=== PATIENT | male | born 1970 | race Caucasian/White ===

== ENCOUNTER → 2018-09-26 12:04 | Outpatient (CLI) | payer OTHER, SELFPAY ==
--- NOTE | 2018-09-26 | DI.RAD.S_ITS ---
PROCEDURE: XR LUMBAR SPINE 2-3V INDICATIONS: LOW BACK PAIN; INTERVERTEBRAL DISC DISORDERS TECHNIQUE: 3 views of the lumbar spine were acquired. COMPARISON: [facility], MR, L-SPINE WITHOUT CONTRAST, 01/13/2014, 14:29. [facility], MR, L-SPINE WITHOUT CONTRAST, 07/11/2012, 10:51. FINDINGS: Bones: This patient has transitional lumbar anatomy. For the purposes of this examination, the level with the last relatively well developed disc space is considered to be S1-S2. By this numbering scheme, there are tiny vestigial ribs associated with the L1 level. Minimal lumbarization can be seen of S1. No displaced fractures are seen. No suspicious lytic or blastic lesions are seen. The disc heights are well-preserved. Soft tissues: Overlying bowel gas pattern is normal. No suspicious soft tissue calcifications. IMPRESSION: Unremarkable lumbar plain films, with transitional lumbar anatomy noted. Dictated by: Tristan Ba M.D. on 09/26/2018 at 11:54 Approved by: Tristan Ba M.D. on 09/26/2018 at 11:57
== END ==
PROVIDERS: PCP Physician Assistant; Visit Provider Physician Assistant
DX: M51.16 Intervertebral disc disorders with radiculopathy, lumbar region (principal); M54.5 Low back pain
CPT/HCPCS: 72100

== ENCOUNTER → 2019-11-13 12:24 | Outpatient (CLI) | payer OTHER, SELFPAY ==
--- NOTE | 2019-11-13 | DI.RAD.S_ITS ---
PROCEDURE: XR CHEST 2V INDICATIONS: WEIGHT LOSS TECHNIQUE: 2 views of the chest were acquired. COMPARISON: None. FINDINGS: Surgical changes and devices: None. Lungs and pleura: Lungs are clear. No pleural effusions or pneumothorax. Mediastinum: Mediastinal contours are normal. Heart size is normal. Bones and chest wall: No suspicious bony abnormalities. Soft tissues appear unremarkable. IMPRESSION: No acute disease Dictated by: Ashok Quinones M.D. on 11/13/2019 at 16:12 Approved by: Ashok Quinones M.D. on 11/13/2019 at 16:14
[2019-11-13 13:24] LABS: Add Manual Diff / Slide Review NO; Basophils Absolute Auto 0 /uL (0-100); Basophils Percent Auto 0.3 % (0-2); Eosinophils Absolute Auto 100 /uL (0-450); Eosinophils Percent Auto 1.2 % (2-4); Hematocrit 47.2 % (41-53); Hemoglobin 16.3 g/dL (13.5-17.5); Lymphocytes Absolute Auto 2300 /uL (1100-4500); Lymphocytes Percent Auto 37.3 % (25-40); Mean Corpuscular HGB Conc 34.6 % (30-36); Mean Corpuscular Volume 92.5 fL (80-100); Monocytes Absolute Auto 500 /uL (0-900); Monocytes Percent Auto 8.5 % (3-14); Neutrophils Absolute Auto 3300 /uL (1500-7000); Neutrophils Percent Auto 52.7 % (50-75); Platelet Count 229 X10^3/uL (150-400); Red Blood Cell Count 5.11 X10^6/uL (4.5-5.9); Red Cell Distribution Width 12.9 % (11.6-14.8); White Blood Cell Count 6.2 X10^3/uL (4.5-11.0)
[2019-11-13 13:39] LABS: Alanine Aminotransferase 24 IU/L (<50); Albumin 4.5 g/dL (3.5-5.0); Albumin Globulin Ratio 1.8 (1.0-2.8); Alkaline Phosphatase 60 U/L (38-126); Aspartate Aminotransferase 22 IU/L (17-59); BUN Creatinine Ratio 17.1 (6-22); Bilirubin Total 0.7 mg/dL (0.2-1.3); Blood Urea Nitrogen 12 mg/dL (9-20); Calcium 9.6 mg/dL (8.4-10.2); Carbon Dioxide 26 mmol/L (22-32); Chloride 98 mmol/L (98-107); Estimated Glomerular Filt Rate > 60.0 mL/min (>60); Globulin 2.5 g/dL (1.7-4.1); HEMOLYSIS < 15 (0-50); Potassium 4.6 mmol/L (3.4-5.1); Sodium 133 mmol/L (137-145)
[2019-11-13 13:40] LABS: C-Reactive Protein Quant < 0.5 mg/dL (<1.0); Hemoglobin A1C% w Est Avg Glu 11.9 % (4.0-6.0)
[2019-11-13 13:52] LABS: Erythrocyte Sedimentation Rate 1 MM/HR (0-15); Glucose 585 mg/dL (70-100)
== END ==
PROVIDERS: PCP Physician Assistant; Referring Provider Physician Assistant; Visit Provider Physician Assistant
DX: R63.4 Abnormal weight loss (principal); E78.2 Mixed hyperlipidemia; R73.09 Other abnormal glucose; R53.1 Weakness
CPT/HCPCS: 36415; 71046; 80053; 83036; 85025; 85651; 86140

== ENCOUNTER 2019-11-13 22:10 | Emergency (ER) | payer OTHER, SELFPAY ==
[2019-11-13 22:11] VITALS: BP 140/91; PULSE 96; RESP 20; TEMP 36.8; O2SAT 99
--- NOTE | 2019-11-13 22:41 | ED.GENADULT ---
HPI - General Adult General Chief complaint: Diabetic Problem Stated complaint: GLUCOSE OVER 600 Time Seen by Provider: 11/13/19 22:33 Source: patient Mode of arrival: Ambulatory Limitations: no limitations History of Present Illness HPI narrative: 49-year-old male nonsmoker with noncontributory medical history presents with his significant other in the chief complaint of an abnormal lab noted on outpatient blood work. He has had episodes of nausea vomiting and unexplained week loss with increased hunger, thirst and urination for the past few weeks. He has had no fever chills. Denies chest pain or shortness of breath. He denies any abdominal pain. He had been seen in the emergency department few weeks ago and had a workup for appendicitis due to the vomiting but they thought it was more likely a viral illness. His blood glucose was in the 600s and he was sent here for evaluation Onset (ago): week(s) Severity: moderate Exacerbating factors: none Related Data Previous Rx's Medication Instructions Recorded metformin 500 mg PO BID #30 tab 11/14/19 Review of Systems Constitutional Constitutional: Denies chills, Denies fatigue, Denies fever(s), Denies frequent falls, Denies lethargy and Reports weakness Eyes Eyes: Denies change in vision, Denies eye discharge, Denies irritation and Denies loss of vision ENT Ears, Nose, Mouth, and Throat: Denies change in voice, Denies dizziness, Denies neck pain, Denies sore throat and Denies throat swelling Cardiovascular Cardiovascular: Denies chest pain, Denies irregular heart rhythm, Denies lightheadedness, Denies palpitations, Denies dyspnea, Denies dyspnea on exertion and Denies orthopnea Respiratory Respiratory: Denies cough, Denies dyspnea, Denies dyspnea on exertion and Denies wheezing Gastrointestinal Gastrointestinal: Denies abdominal pain, Denies change in bowel habits, Denies diarrhea, Denies nausea and Denies vomiting Genitourinary Genitourinary: Denies hematuria, Denies flank pain, Denies urinary incontinence and Denies urinary urgency Musculoskeletal Musculoskeletal: Denies back pain, Denies muscle weakness, Denies neck pain, Denies numbness and Denies tingling Integumentary/Breasts Skin/Breast: Denies pruritus, Denies erythema, Denies rash and Denies wounds Neurologic Neurologic: Denies behavioral changes, Denies confusion, Denies dizziness, Denies frequent falls, Denies loss of vision, Denies numbness, Denies tingling and Reports weakness Psychiatric Psychiatric: Denies anxiety, Denies behavioral changes, Denies confusion, Denies depression, Denies homicidal ideation and Denies suicidal ideation Endocrine Endocrine: Denies fatigue, Denies flushing and Denies palpitations Hematologic/Lymphatic Hematologic/Lymphatic: Denies easy bruising Allergic/Immunologic Allergic/Immunologic: Denies urticaria, Denies throat swelling and Denies wheezing Patient History Social History Smoking Status: Former smoker Smoking Status: Former smoker alcohol intake frequency: holidays/special occasions only Exam Narrative Exam Narrative: GENERAL: [49] year old patient appears stated age. Well-nourished, well-developed patient, in mild distress. HEAD: Atraumatic. Normocephalic. EYES: Pupils equal round and reactive. Extraocular motions intact. No scleral icterus. No injection or drainage. ENT: Nose without bleeding, purulent drainage. Throat without erythema, tonsillar hypertrophy or exudate. Airway patent. NECK: Trachea midline. Non tender CARDIOVASCULAR: Regular rate and rhythm without murmurs, gallops, or rubs. RESPIRATORY: Clear to auscultation. Breath sounds equal bilaterally. No wheezes, rales, or rhonchi. GASTROINTESTINAL: Abdomen soft, non-tender, nondistended. EXTREMITIES: No edema or joint tenderness. BACK: Nontender without deformity or crepitance. No flank tenderness. NEURO: AOx3. SKIN: No rash or erythema of visible areas Initial Vital Signs Initial Vital Signs: Vital Signs Temperature 98.2 F 11/13/19 22:11 Pulse Rate 96 H 11/13/19 22:11 Respiratory Rate 20 11/13/19 22:11 Blood Pressure 140/91 H 11/13/19 22:11 Pulse Oximetry 99 11/13/19 22:11 Course Orders Ordered: Discontinued Medications Lactated Ringer's (Lactated Ringers) 1,000 mls @ 1,000 mls/hr IV BOLUS ONE Stop: 11/13/19 23:40 Last Infusion: 11/14/19 00:49 Dose: 0 mls/hr Documented by: Admin: 11/13/19 22:55 Dose: 1,000 mls/hr Documented by: SUZAN Lactated Ringer's (Lactated Ringers) 1,000 mls @ 1,000 mls/hr IV BOLUS ONE Stop: 11/14/19 01:02 Last Admin: 11/14/19 00:48 Dose: 1,000 mls/hr Documented by: JAG Vital Signs Vital signs: Vital Signs - 8 hr 11/13/19 22:11 Temperature 98.2 F Pulse Rate 96 H Respiratory Rate 20 Blood Pressure 140/91 H Pulse Oximetry 99 Medical Decision Making Lab Data Result diagrams: 11/13/19 22:36 11/13/19 22:36 Labs: Lab Results 11/13/19 11/13/19 11/13/19 Range/Units 22:36 22:36 22:36 WBC 7.4 (4.5-11.0) X10^3/uL RBC 5.10 (4.5-5.9) X10^6/uL Hgb 16.3 (13.5-17.5) g/dL Hct 46.9 (41-53) % MCV 92.1 (80-100) fL MCH 31.9 (26-34) PG MCHC 34.7 (30-36) % RDW 13.0 (11.6-14.8) % Plt Count 230 (150-400) X10^3/uL Neut % (Auto) 53.1 (50-75) % Lymph % (Auto) 36.9 (25-40) % [place] % (Auto) 8.0 (3-14) % Eos % (Auto) 1.5 L (2-4) % Baso % (Auto) 0.5 (0-2) % Neut # (Auto) 3900 (2746-3557) /uL Lymph # (Auto) 2700 (8097-4027) /uL [place] # (Auto) 600 (0-900) /uL Eos # (Auto) 100 (0-450) /uL Baso # (Auto) 0 (0-100) /uL VBG pH (7.33-7.43) VBG pCO2 (45-50) mmHg VBG pO2 (35-45) mmHg VBG HCO3 (23-28) mmol/L VBG Total CO2 (24-29) mmol/L VBG O2 Saturation (70-75) % VBG Base Excess (0-4) mmol/L Sodium (137-145) mmol/L Potassium (3.4-5.1) mmol/L Chloride (98-107) mmol/L Carbon Dioxide (22-32) mmol/L BUN (9-20) mg/dL Creatinine (0.66-1.25) mg/dL Estimated GFR (>60) mL/min BUN/Creatinine Ratio (6-22) Glucose (70-100) mg/dL Hemoglobin A1c 12.1 H (4.0-6.0) % Lactate (0.7-2.1) mmol/L Calcium (8.4-10.2) mg/dL Total Bilirubin (0.2-1.3) mg/dL AST (17-59) IU/L ALT (<50) IU/L Alkaline Phosphatase (38-126) U/L Total Protein (6.3-8.2) g/dL Albumin (3.5-5.0) g/dL Globulin (1.7-4.1) g/dL Albumin/Globulin Ratio (1.0-2.8) Procalcitonin < 0.05 (<0.5) ng/mL Ketones (<0.27) mmol/L 11/13/19 11/13/19 11/13/19 Range/Units 22:36 22:36 22:50 WBC (4.5-11.0) X10^3/uL RBC (4.5-5.9) X10^6/uL Hgb (13.5-17.5) g/dL Hct (41-53) % MCV (80-100) fL MCH (26-34) PG MCHC (30-36) % RDW (11.6-14.8) % Plt Count (150-400) X10^3/uL Neut % (Auto) (50-75) % Lymph % (Auto) (25-40) % [place] % (Auto) (3-14) % Eos % (Auto) (2-4) % Baso % (Auto) (0-2) % Neut # (Auto) (7024-9407) /uL Lymph # (Auto) (0656-7765) /uL [place] # (Auto) (0-900) /uL Eos # (Auto) (0-450) /uL Baso # (Auto) (0-100) /uL VBG pH 7.38 (7.33-7.43) VBG pCO2 36.9 L (45-50) mmHg VBG pO2 43 (35-45) mmHg VBG HCO3 22 L (23-28) mmol/L VBG Total CO2 23 L (24-29) mmol/L VBG O2 Saturation 78 H (70-75) % VBG Base Excess -3.0 L (0-4) mmol/L Sodium 134 L (137-145) mmol/L Potassium 4.2 (3.4-5.1) mmol/L Chloride 100 (98-107) mmol/L Carbon Dioxide 26 (22-32) mmol/L BUN 15 (9-20) mg/dL Creatinine 0.70 (0.66-1.25) mg/dL Estimated GFR > 60.0 (>60) mL/min BUN/Creatinine Ratio 21.4 (6-22) Glucose 471 H D (70-100) mg/dL Hemoglobin A1c (4.0-6.0) % Lactate 2.1 (0.7-2.1) mmol/L Calcium 9.5 (8.4-10.2) mg/dL Total Bilirubin 0.6 (0.2-1.3) mg/dL AST 29 (17-59) IU/L ALT 27 (<50) IU/L Alkaline Phosphatase 63 (38-126) U/L Total Protein 7.0 (6.3-8.2) g/dL Albumin 4.3 (3.5-5.0) g/dL Globulin 2.7 (1.7-4.1) g/dL Albumin/Globulin Ratio 1.6 (1.0-2.8) Procalcitonin (<0.5) ng/mL Ketones 0.18 (<0.27) mmol/L Point of Care Testing Glucose POC 283 Point of care testing: Point of Care Testing Glucose POC 283 Discharge Plan Departure Patient Disposition: Home Clinical Impression: Diabetes mellitus Qualifiers: Diabetes mellitus type: type 2 Diabetes mellitus usp insulin use: without intermediate project manager use Diabetes mellitus complication status: without complication Qualified Code(s): E11.9 - Type 2 diabetes mellitus without complications Discharge Date/Time: 11/14/19 02:41 Instructions: DI for Diabetes Type 2 Activity Restrictions/Additional Instructions: *You have been diagnosed with [hyperglycemia, very likely to be type 2 diabetes] *What to do: *Take medications as directed *Follow up with your primary care provider in 2-3 days, call for an appointment. Let them know you were seen in the Emergency Department and that we ask that you be seen in follow up *Return to ER if you should have any new, worsening or concerning symptoms Prescriptions: New metformin 500 mg tablet 500 mg PO BID Qty: 30 RF: 0 Referrals: Lu Kohler PA-C [Primary Care Provider] -
[2019-11-13] MEDS: LACTATED RINGERS 1,000 ML 1000 ML IV (22:55)
[2019-11-13 23:00] LABS: Add Manual Diff / Slide Review NO; Basophils Absolute Auto 0 /uL (0-100); Basophils Percent Auto 0.5 % (0-2); Eosinophils Absolute Auto 100 /uL (0-450); Eosinophils Percent Auto 1.5 % (2-4); Hematocrit 46.9 % (41-53); Hemoglobin 16.3 g/dL (13.5-17.5); Lymphocytes Absolute Auto 2700 /uL (1100-4500); Lymphocytes Percent Auto 36.9 % (25-40); Mean Corpuscular HGB Conc 34.7 % (30-36); Mean Corpuscular Hemoglobin 31.9 PG (26-34); Mean Corpuscular Volume 92.1 fL (80-100); Monocytes Absolute Auto 600 /uL (0-900); Neutrophils Absolute Auto 3900 /uL (1500-7000); Neutrophils Percent Auto 53.1 % (50-75); Platelet Count 230 X10^3/uL (150-400); White Blood Cell Count 7.4 X10^3/uL (4.5-11.0)
[2019-11-13 23:02] LABS: Lactate (Lactic Acid) 2.1 mmol/L (0.7-2.1)
[2019-11-13 23:02] LABS: HCO3 VBG 22 mmol/L (23-28); Oxygen Saturation VBG 78 % (70-75); PCO2 VBG 36.9 mmHg (45-50); PO2 VBG 43 mmHg (35-45); Total CO2 VBG 23 mmol/L (24-29); pH VBG 7.38 (7.33-7.43)
[2019-11-13 23:05] LABS: Alanine Aminotransferase 27 IU/L (<50); Albumin 4.3 g/dL (3.5-5.0); Albumin Globulin Ratio 1.6 (1.0-2.8); Alkaline Phosphatase 63 U/L (38-126); Aspartate Aminotransferase 29 IU/L (17-59); BUN Creatinine Ratio 21.4 (6-22); Bilirubin Total 0.6 mg/dL (0.2-1.3); Blood Urea Nitrogen 15 mg/dL (9-20); Calcium 9.5 mg/dL (8.4-10.2); Carbon Dioxide 26 mmol/L (22-32); Chloride 100 mmol/L (98-107); Estimated Glomerular Filt Rate > 60.0 mL/min (>60); Globulin 2.7 g/dL (1.7-4.1); Glucose 471 mg/dL (70-100); HEMOLYSIS 20 (0-50); Potassium 4.2 mmol/L (3.4-5.1); Sodium 134 mmol/L (137-145)
[2019-11-13 23:07] LABS: Ketones (Beta-Hydroxybutyrate) 0.18 mmol/L (<0.27)
[2019-11-13 23:20] LABS: Procalcitonin < 0.05 ng/mL (<0.5)
[2019-11-13 23:44] LABS: Hemoglobin A1C% w Est Avg Glu 12.1 % (4.0-6.0)
[2019-11-14] MEDS: LACTATED RINGERS 1,000 ML 1000 ML IV (00:48)
[2019-11-14 02:36] VITALS: BP 138/88; PULSE 82; RESP 16; O2SAT 99
--- NOTE | 2019-11-29 02:40 | PC.NURSE ---
LR stopped at 0148. 1 liter infused.
== END 2019-11-14 02:41 | disposition home or self-care (01) ==
PROVIDERS: Emergency Provider Emergency Medicine; PCP Physician Assistant
DX: E11.65 Type 2 diabetes mellitus with hyperglycemia (principal); K63.4 Enteroptosis; E78.2 Mixed hyperlipidemia; R53.1 Weakness
CPT/HCPCS: 36415; 71046; 80053; 82009; 82805; 82962; 83036; 83605; 84145; 85025; 85651; 86140; 87040; 99284

== ENCOUNTER → 2019-11-18 07:55 | Outpatient (CLI) | payer OTHER, SELFPAY ==
--- NOTE | 2019-11-18 | DI.MRI.S_ITS ---
PROCEDURE: MR LUMBAR SPINE WO CON INDICATIONS: INTERVERTABRAL DISC DISORDER TECHNIQUE: Noncontrast sagittal T1 spin echo and T2 fast echo, sagittal STIR, axial T1 and T2 fast spin echo through the lumbar spine. In cases with scoliosis, additional coronal T2 fast spin echo may be performed. COMPARISON: [facility], MR, L-SPINE WITHOUT CONTRAST, 01/13/2014, 14:29. FINDINGS: Image quality: Excellent. Alignment and Curvature: There is normal bony alignment. Bone Marrow: Marrow is of normal overall signal. No acute vertebral body compression fractures. Spinal Cord: Conus medullaris terminates at the L1-L2 level. Visualized cord demonstrates normal signal and size. Paraspinous Soft Tissues: No paravertebral masses. T12-L1: Normal in appearance. L1-L2: Normal appearance. L2-L3: Normal in appearance. L3-L4: No significant change. Posterior annulus tear. Mild disc bulge. Mild facet and ligament hypertrophy. Borderline canal stenosis. No significant foraminal stenosis. L4-L5: Chronic posterior annulus tear. Slight interval decrease in posterior disc bulge. Facet and ligament hypertrophy. Mild canal stenosis. No foraminal stenosis. L5-S1: Chronic posterior annulus tear. Mild left paracentral disc protrusion, also previously present. A small associated disc extrusion previously present has decreased in size. There is mild impingement on the left S1 nerve root in the left lateral recess. Mild canal stenosis. Mild bilateral foraminal stenosis. IMPRESSION: 1. As before, there are annulus tears at L3-L4, L4-L5, and L5-S1. 2. Canal stenosis is borderline at L3-L4, and mild at L4-L5 and L5-S1. 3. At L5-S1, there is a chronic mild left paracentral disc protrusion. A small associated disc extrusion has decreased in size. There is mild impingement on the left S1 nerve root in the left lateral recess. Dictated by: Luís Akhtar M.D. on 11/18/2019 at 9:08 Approved by: Luís Akhtar M.D. on 11/18/2019 at 9:22
== END ==
PROVIDERS: PCP Physician Assistant; Referring Provider Physician Assistant; Visit Provider Physician Assistant
DX: M51.17 Intervertebral disc disorders with radiculopathy, lumbosacral region (principal); M51.16 Intervertebral disc disorders with radiculopathy, lumbar region; M48.061 Spinal stenosis, lumbar region without neurogenic claudication; M48.07 Spinal stenosis, lumbosacral region
CPT/HCPCS: 72148

== ENCOUNTER 2020-03-27 12:05 | Emergency (ER) | payer OTHER, SELFPAY ==
[2020-03-27] VITALS (12 sets, daily range): BP systolic 124–158; BP diastolic 87–101; PULSE 53–86; RESP 14–22; TEMP 36.8–36.9; O2SAT 90–100; BMI 19.0
[2020-03-27 13:19] LABS: Add Manual Diff / Slide Review NO; Basophils Absolute Auto 0 /uL (0-100); Basophils Percent Auto 0.4 % (0-2); Eosinophils Absolute Auto 0 /uL (0-450); Eosinophils Percent Auto 0.5 % (2-4); Hematocrit 44.4 % (41-53); Hemoglobin 15.6 g/dL (13.5-17.5); Lymphocytes Absolute Auto 1900 /uL (1100-4500); Lymphocytes Percent Auto 32.8 % (25-40); Mean Corpuscular HGB Conc 35.2 % (30-36); Mean Corpuscular Hemoglobin 31.9 PG (26-34); Mean Corpuscular Volume 90.6 fL (80-100); Monocytes Absolute Auto 500 /uL (0-900); Monocytes Percent Auto 8.3 % (3-14); Neutrophils Absolute Auto 3400 /uL (1500-7000); Platelet Count 248 X10^3/uL (150-400); Red Cell Distribution Width 13.2 % (11.6-14.8); White Blood Cell Count 5.9 X10^3/uL (4.5-11.0)
[2020-03-27 13:26] LABS: INR 0.9 (0.9-1.3); Prothrombin Time 10.8 SECONDS (10.1-12.7)
[2020-03-27 13:29] LABS: PTT Partial Thromboplastin Tim 27 SECONDS (26.4-36.2)
[2020-03-27 13:31] LABS: Alanine Aminotransferase 24 IU/L (<50); Albumin 4.2 g/dL (3.5-5.0); Albumin Globulin Ratio 1.9 (1.0-2.8); Alkaline Phosphatase 34 U/L (38-126); Aspartate Aminotransferase 22 IU/L (17-59); BUN Creatinine Ratio 22.8 (6-22); Bilirubin Total 0.8 mg/dL (0.2-1.3); Blood Urea Nitrogen 18 mg/dL (9-20); Calcium 9.6 mg/dL (8.4-10.2); Carbon Dioxide 26 mmol/L (22-32); Chloride 101 mmol/L (98-107); Estimated Glomerular Filt Rate > 60.0 mL/min (>60); Globulin 2.2 g/dL (1.7-4.1); Glucose 253 mg/dL (70-100); HEMOLYSIS < 15 (0-50); Lipase 56 U/L (23-300); Potassium 4.3 mmol/L (3.4-5.1); Sodium 134 mmol/L (137-145); Total Protein 6.4 g/dL (6.3-8.2)
--- NOTE | 2020-03-27 13:36 | DI.RAD.S_ITS ---
PROCEDURE: XR CHEST 2V INDICATIONS: hx of smoker, significant weight loss, upper abd pain TECHNIQUE: 2 views of the chest were acquired. COMPARISON: [facility], CR, XR CHEST 2V, 11/13/2019, 12:33. FINDINGS: Surgical changes and devices: None. Lungs and pleura: Lungs are clear. No pleural effusions or pneumothorax. Mediastinum: Mediastinal contours are normal. Heart size is normal. Bones and chest wall: No suspicious bony abnormalities. Soft tissues appear unremarkable. IMPRESSION: No acute cardiopulmonary process is seen. If there is strong clinical concern for an intrathoracic neoplasm in this patient with a given history of smoking, please consider a dedicated chest CT with contrast for further evaluation. Dictated by: Tristan Ba M.D. on 03/27/2020 at 14:15 Approved by: Tristan Ba M.D. on 03/27/2020 at 14:16
[2020-03-27 13:38] LABS: Bacteria Urine None Seen; RBC Urine None Seen (0-5/HPF); WBC Urine None Seen (0-5/HPF)
[2020-03-27 13:48] LABS: Amorphous Sediment Urine 3+; Calcium Oxalate Crystals Urine Few; Culture Indicated Urine Cult Not Indicated
[2020-03-27] MEDS: ONDANSETRON 4 MG/2 ML INJ IV (14:03)
[2020-03-27] MEDS: PANTOPRAZOLE 40 MG VIAL IV (14:03)
[2020-03-27] MEDS: SODIUM CHLORIDE 0.9% 1,000 ML 1000 ML IV (14:03)
[2020-03-27] MEDS: SUCRALFATE 1 GM/10 ML ORAL SUSP PO (14:03)
--- NOTE | 2020-03-27 14:13 | DI.US.S_ITS ---
PROCEDURE: US ABDOMEN LIMITED INDICATIONS: EPIGASTRIC PAIN, WEIGHT LOSS, N/V TECHNIQUE: Real-time focused scanning was performed of the abdomen, with image documentation. COMPARISON: [facility], CR, XR CHEST 2V, 03/27/2020, 13:37. FINDINGS: No findings of gallstones or sludge are seen. The gallbladder wall is not thickened, measuring 3 mm or less. No specific pericholecystic fluid is seen. The sonographic Kline sign is negative. There is no biliary dilatation, the common bile duct measures 6 mm. The liver is normal in size and demonstrates no focal lesions. No significant pancreatic abnormality is seen on these images. IMPRESSION: The gallbladder demonstrates a normal sonographic appearance. No biliary dilatation is seen. Dictated by: Tristan Ba M.D. on 03/27/2020 at 14:17 Approved by: Tristan Ba M.D. on 03/27/2020 at 14:18
--- NOTE | 2020-03-27 14:40 | ED.ABDPAIN ---
HPI - Abdominal Pain <YAZMIN Parra - Last Filed: 03/28/20 00:51> General Chief Complaint: Dizziness Stated Complaint: Nausea, vomiting, dizziness for 7 days Time Seen by Provider: 03/27/20 12:47 Source: patient and family Mode of arrival: Family Vehicle Limitations: no limitations History of Present Illness HPI narrative: This is a 50-year-old male, former smoker, who has significant medical history with type 2 diabetes is not currently on medication presents to ED with significant other with chief complain of significant weight loss over 40 lb, ongoing nausea and vomiting, and epigastric/mid upper abdominal pain for last 5 months. Old ED EHR shows weight during last visit in November indicated 73.9 kg and today's weight is 63.5 kg with BMI of 19% and lost approximately 10kg/22 Lbs. He vomits about 1-2 times in 24 period but very random and is not always triggered by eating. He describes his epigastric pain as burning. Patient states he had lost about 45 lb since October and reports worsening for last 2 weeks and lost 10 lb. Patient was diagnosed with diabetes in November with routine blood test that was done by primary care physician and noted at that time blood sugar over 600 mg/dL and was referred to emergency room. Patient was on metformin for 5 days and stopped 2 weeks ago since she was not able to tolerated it. Currently his blood sugar at home is running between 180s to 210 mg/dL. Patient eliminated carbohydrates in his current diet is consisted of healthy soup made with chicken and vegetables and blended when he can tolerate it it. Patient denies diarrhea, fever, blood in his emesis. Patient reports he was referred to GI specialist at [place] and had EGD done with the biopsy and also GI motility tests done and was told results are normal. Patient has been seeing Naturopathic specialist Dr. Wilde and and is currently taking Berbarine for diabetes. Patient states he had imaging tests done in his abdomen but this is not available today for review. Patient has 1st appointment with able bodied watchman in [place] in 3 days. The most recent hemoglobin A1c is down to 8.4 a month ago from 12.1 on 11/13/19. Related Data Previous Rx's Medication Instructions Recorded metformin 500 mg PO BID #30 tab 11/14/19 metoclopramide HCl [Reglan] 10 mg PO QACHS PRN #14 tab 03/27/20 ondansetron 4 mg PO Q8H PRN #10 tab 03/27/20 sucralfate 1 gram PO QAC PRN #30 tab 03/27/20 Allergies Allergy/AdvReac Type Severity Reaction Status Date / Time bupropion [From Wellbutrin] Allergy Verified 03/27/20 12:34 egg Allergy Verified 03/27/20 12:34 lactase [From Dairy Aid] Allergy Verified 03/27/20 12:34 Review of Systems <[facility] - Last Filed: 03/28/20 00:51> Review of Systems Narrative: General: Denies fever, chills, fatigue, malaise, sweats, (+) unintentional weight loss of 45 lb in 5 months. HEENT: Denies sinus pain, ear pain, sore throat, difficulty swallowing, dizziness. Respiratory: Denies dyspnea, cough, wheezing, hemoptysis, sputum. Cardiovascular: Denies chest pain, palpitations, orthopnea, edema. Gastrointestinal: See HPI : Denies dysuria, frequency, incontinence, hematuria, urinary retention. Musculoskeletal: Denies weakness, joint pain or bony pain. Skin: Denies rash, skin lesions, or other. Neurologic: Denies weakness, headache, numbness, change in speech, confusion, seizures, incoordination. Psychiatric: No concerning psychosocial issues. 12-point review of systems is negative except for those stated above. Patient History <[facility] Last Filed: 03/28/20 00:51> Social History Smoking Status: Former smoker Smoking Status: Former smoker alcohol intake frequency: holidays/special occasions only Substance Use Type: does not use Exam [facility] Filed: 03/28/20 00:51> Narrative Exam Narrative: GEN: Alert, oriented x 3, well appearing and nourished, and in no acute distress. Head: Normal cephalic, atraumatic. No scalp or temporal tenderness, palpable mass or rash. EYES: Pupils are equal, round, and reactive to light and accommodation. Extraocular muscles are intact bilaterally. There is no subconjunctival hemorrhage, exudate and sclera non-icteric. ENT: Hearing grossly intact. Nose without bleeding, purulent discharge or deviation. Mucous membrane moist, no mucosal lesion. Throat without erythema, tonsillar hypertrophy or exudate. Uvula in midline, airway patent. Neck: Trachea in midline. No JVD, non-tender without lymphadenopathy. No masses or thyroid megaly. Supple, non-tender and no meningeal signs. CARDIAC: Normal regular rate and rhythm without murmurs, gallops, or rubs. No chest wall tenderness. No peripheral edema, cyanosis or pallor. Capillary refill is less than 2 seconds. RESPIRATORY: Lungs are clear to auscultate bilaterally. No cough, wheezes, rales, or rhonchi. No stridor, respiratory distress, increase work of breathing, or accessary muscle used. ABD: Abdomen soft, generalized tenderness to palpate in upper quadrants and non-distended. No guarding or rebound tenderness to palpate. Bowel sounds are normal in all 4 quadrants. There is no palpable masses or organomegaly. EXT: Full painless ROM of all extremities with no loss of sensation, strength, effusion or edema. SKIN: Warm, dry, normal color for patient. No erythema, lesions or rash over visible areas. BACK: Nontender without deformity or crepitance. No flank tenderness. NEUROLOGICAL: Alert and oriented to place, time and person. Sensation and motor function intact bilaterally. No facial droops, dysphasia. PSYCHIATRIC: Good judgement and reason, without hallucinations, abnormal affect or abnormal behaviors during the examination. Patient is not suicidal. Initial Vital Signs Initial Vital Signs: Vital Signs Temperature 98.4 F 03/27/20 12:27 Pulse Rate 53 L 03/27/20 12:27 Respiratory Rate 18 03/27/20 12:27 Blood Pressure 130/101 H 03/27/20 12:27 Pulse Oximetry 99 03/27/20 12:27 <Vasu Crow MD - Last Filed: 03/28/20 07:51> Initial Vital Signs Initial Vital Signs: Vital Signs Temperature 98.4 F 03/27/20 12:27 Pulse Rate 53 L 03/27/20 12:27 Respiratory Rate 18 03/27/20 12:27 Blood Pressure 130/101 H 03/27/20 12:27 Pulse Oximetry 99 03/27/20 12:27 Scores <YAZMIN Parra - Last Filed: 03/28/20 00:51> GCS Beth coma scale eye opening: Spontaneous [place] coma scale verbal response: Orientated Beth coma scale motor response: Obey commands [place] coma scale total score: 15 Course <Mark Anderson-YAZMIN Nesbitt - Last Filed: 03/28/20 00:51> Orders Ordered: Discontinued Medications Diphenhydramine HCl (Benadryl) 25 mg IV NOW ONE Stop: 03/27/20 16:27 Last Admin: 03/27/20 16:40 Dose: 25 mg Documented by: VALERIA Sodium Chloride (Normal Saline 0.9%) 1,000 mls @ 1,000 mls/hr IV BOLUS ONE Stop: 03/27/20 14:51 Last Infusion: 03/27/20 16:28 Dose: 0 mls/hr Documented by: Admin: 03/27/20 14:03 Dose: 1,000 mls/hr Documented by: VALERIA Sodium Chloride (Normal Saline 0.9%) 1,000 mls @ 125 mls/hr IV CONT MARINA Last Admin: 03/27/20 16:39 Dose: 125 mls/hr Documented by: VALERIA Ketorolac Tromethamine (Toradol) 15 mg IV NOW ONE Stop: 03/27/20 16:23 Last Admin: 03/27/20 16:40 Dose: 15 mg Documented by: VALERIA Metoclopramide HCl (Reglan) 10 mg IV NOW ONE Stop: 03/27/20 16:24 Last Admin: 03/27/20 16:40 Dose: 10 mg Documented by: VALERIA Ondansetron HCl (Zofran) 4 mg IV NOW ONE Stop: 03/27/20 13:36 Last Admin: 03/27/20 14:03 Dose: 4 mg Documented by: VALERIA Pantoprazole Sodium (Protonix) 40 mg IV NOW ONE Stop: 03/27/20 13:36 Last Admin: 03/27/20 14:03 Dose: 40 mg Documented by: VALERIA Sucralfate (Carafate) 1 gm PO NOW ONE Stop: 03/27/20 14:01 Last Admin: 03/27/20 14:03 Dose: 1 gm Documented by: VALERIA Vital Signs Vital signs: Vital Signs - 8 hr 03/27/20 15:38 03/27/20 16:00 03/27/20 16:38 Temperature Pulse Rate 79 77 Respiratory Rate 16 Blood Pressure 124/87 Pulse Oximetry 99 90 L 03/27/20 16:39 03/27/20 17:00 03/27/20 17:57 Temperature 98.2 F Pulse Rate 76 79 86 Respiratory Rate 22 14 22 Blood Pressure 157/100 H 158/100 H 148/98 H Pulse Oximetry 97 100 98 <Vasu Crow MD - Last Filed: 03/28/20 07:51> Orders Ordered: Discontinued Medications Diphenhydramine HCl (Benadryl) 25 mg IV NOW ONE Stop: 03/27/20 16:27 Last Admin: 03/27/20 16:40 Dose: 25 mg Documented by: VALERIA Sodium Chloride (Normal Saline 0.9%) 1,000 mls @ 1,000 mls/hr IV BOLUS ONE Stop: 03/27/20 14:51 Last Infusion: 03/27/20 16:28 Dose: 0 mls/hr Documented by: Admin: 03/27/20 14:03 Dose: 1,000 mls/hr Documented by: VALERIA Sodium Chloride (Normal Saline 0.9%) 1,000 mls @ 125 mls/hr IV CONT MARINA Last Admin: 03/27/20 16:39 Dose: 125 mls/hr Documented by: VALERIA Ketorolac Tromethamine (Toradol) 15 mg IV NOW ONE Stop: 03/27/20 16:23 Last Admin: 03/27/20 16:40 Dose: 15 mg Documented by: VALERIA Metoclopramide HCl (Reglan) 10 mg IV NOW ONE Stop: 03/27/20 16:24 Last Admin: 03/27/20 16:40 Dose: 10 mg Documented by: VALERIA Ondansetron HCl (Zofran) 4 mg IV NOW ONE Stop: 03/27/20 13:36 Last Admin: 03/27/20 14:03 Dose: 4 mg Documented by: VALERIA Pantoprazole Sodium (Protonix) 40 mg IV NOW ONE Stop: 03/27/20 13:36 Last Admin: 03/27/20 14:03 Dose: 40 mg Documented by: VALERIA Sucralfate (Carafate) 1 gm PO NOW ONE Stop: 03/27/20 14:01 Last Admin: 03/27/20 14:03 Dose: 1 gm Documented by: VALERIA Vital Signs Vital signs: Vital Signs - 8 hr 03/27/20 15:38 03/27/20 16:00 03/27/20 16:38 Temperature Pulse Rate 79 77 Respiratory Rate 16 Blood Pressure 124/87 Pulse Oximetry 99 90 L 03/27/20 16:39 03/27/20 17:00 03/27/20 17:57 Temperature 98.2 F Pulse Rate 76 79 86 Respiratory Rate 22 14 22 Blood Pressure 157/100 H 158/100 H 148/98 H Pulse Oximetry 97 100 98 MDM - Abdominal Pain <Mark YAZMIN Granados - Last Filed: 03/28/20 00:51> Differential Diagnosis Differential diagnosis: Likely other (Cholecystitis, pancreatitis, bowel obstruction, malnutrition, malabsorption syndrome, gastroporosis, neoplasm) Medical Records Attestation: I reviewed the patient's medical records. Lab Data Attestation: I reviewed the patient's lab results. Result diagrams: 03/27/20 13:12 03/27/20 13:12 Labs: Lab Results 03/27/20 03/27/20 03/27/20 Range/Units 12:25 13:12 13:12 WBC 5.9 (4.5-11.0) X10^3/uL RBC 4.90 (4.5-5.9) X10^6/uL Hgb 15.6 (13.5-17.5) g/dL Hct 44.4 (41-53) % MCV 90.6 (80-100) fL MCH 31.9 (26-34) PG MCHC 35.2 (30-36) % RDW 13.2 (11.6-14.8) % Plt Count 248 (150-400) X10^3/uL Neut % (Auto) 58.0 (50-75) % Lymph % (Auto) 32.8 (25-40) % [place] % (Auto) 8.3 (3-14) % Eos % (Auto) 0.5 L (2-4) % Baso % (Auto) 0.4 (0-2) % Neut # (Auto) 3400 (7627-6875) /uL Lymph # (Auto) 1900 (0281-3342) /uL [place] # (Auto) 500 (0-900) /uL Eos # (Auto) 0 (0-450) /uL Baso # (Auto) 0 (0-100) /uL PT 10.8 (10.1-12.7) SECONDS INR 0.9 (0.9-1.3) APTT 27 (26.4-36.2) SECONDS Sodium (137-145) mmol/L Potassium (3.4-5.1) mmol/L Chloride (98-107) mmol/L Carbon Dioxide (22-32) mmol/L BUN (9-20) mg/dL Creatinine (0.66-1.25) mg/dL Estimated GFR (>60) mL/min BUN/Creatinine Ratio (6-22) Glucose (70-100) mg/dL Calcium (8.4-10.2) mg/dL Total Bilirubin (0.2-1.3) mg/dL AST (17-59) IU/L ALT (<50) IU/L Alkaline Phosphatase (38-126) U/L Total Protein (6.3-8.2) g/dL Albumin (3.5-5.0) g/dL Globulin (1.7-4.1) g/dL Albumin/Globulin Ratio (1.0-2.8) Lipase (23-300) U/L Urine RBC None seen (0-5/HPF) Urine WBC None seen (0-5/HPF) Calcium Oxalate Crystal Few H Amorphous Sediment 3+ Urine Bacteria None seen (None) Ur Culture Indicated? Cult not indicated 03/27/20 Range/Units 13:12 WBC (4.5-11.0) X10^3/uL RBC (4.5-5.9) X10^6/uL Hgb (13.5-17.5) g/dL Hct (41-53) % MCV (80-100) fL MCH (26-34) PG MCHC (30-36) % RDW (11.6-14.8) % Plt Count (150-400) X10^3/uL Neut % (Auto) (50-75) % Lymph % (Auto) (25-40) % [place] % (Auto) (3-14) % Eos % (Auto) (2-4) % Baso % (Auto) (0-2) % Neut # (Auto) (6520-3758) /uL Lymph # (Auto) (1865-1178) /uL [place] # (Auto) (0-900) /uL Eos # (Auto) (0-450) /uL Baso # (Auto) (0-100) /uL PT (10.1-12.7) SECONDS INR (0.9-1.3) APTT (26.4-36.2) SECONDS Sodium 134 L (137-145) mmol/L Potassium 4.3 (3.4-5.1) mmol/L Chloride 101 (98-107) mmol/L Carbon Dioxide 26 (22-32) mmol/L BUN 18 (9-20) mg/dL Creatinine 0.79 (0.66-1.25) mg/dL Estimated GFR > 60.0 (>60) mL/min BUN/Creatinine Ratio 22.8 H (6-22) Glucose 253 H (70-100) mg/dL Calcium 9.6 (8.4-10.2) mg/dL Total Bilirubin 0.8 (0.2-1.3) mg/dL AST 22 (17-59) IU/L ALT 24 (<50) IU/L Alkaline Phosphatase 34 L (38-126) U/L Total Protein 6.4 (6.3-8.2) g/dL Albumin 4.2 (3.5-5.0) g/dL Globulin 2.2 (1.7-4.1) g/dL Albumin/Globulin Ratio 1.9 (1.0-2.8) Lipase 56 (23-300) U/L Urine RBC (0-5/HPF) Urine WBC (0-5/HPF) Calcium Oxalate Crystal Amorphous Sediment Urine Bacteria (None) Ur Culture Indicated? Point of care testing: Urine Dip Bedside Urine Glucose 250 mg/dl Bedside Urine Bilirubin - Negative Bedside Urine Ketone - Negative Urine Specific [place] 1.020 Bedside Urine Occult Blood - Negative Bedside Urine pH 6.0 Bedside Urine Protein - Negative Bedside Urine Urobilinogen - Negative Bedside Urine Nitrite - Negative Bedside Urine Leukocytes - Negative Esterase Imaging Data US - abdomen: Radiologist's Impression: [address] [address] Ultrasound Report Signed Patient: Narda Brooks#: [id number] : 1970Acct:[id number] Age/Sex: 50 / MDate of Service: 03/27/20 Loc: ED Accession Number: [id number] Procedure: US abdomen limited Ordering Provider: Mark Granados [facility] PROCEDURE: US ABDOMEN LIMITED INDICATIONS: EPIGASTRIC PAIN, WEIGHT LOSS, N/V TECHNIQUE: Real-time focused scanning was performed of the abdomen, with image documentation. COMPARISON: [facility], CR, XR CHEST 2V, 03/27/2020, 13:37. FINDINGS: No findings of gallstones or sludge are seen. The gallbladder wall is not thickened, measuring 3 mm or less. No specific pericholecystic fluid is seen. The sonographic Kline sign is negative. There is no biliary dilatation, the common bile duct measures 6 mm. The liver is normal in size and demonstrates no focal lesions. No significant pancreatic abnormality is seen on these images. IMPRESSION: The gallbladder demonstrates a normal sonographic appearance. No biliary dilatation is seen. Dictated by: Tristan aB M.D. on 03/27/2020 at 14:17 Approved by: Tristan Ba M.D. on 03/27/2020 at 14:18 CT scan - abdomen/pelvis: Radiologist's Impression: [place] [address] CT Scan Report Signed Patient: Franklin BrooksMR#: [id number] : 1970Acct:[id number] Age/Sex: 50 / MDate of Service: 03/27/20 Loc: ED Accession Number: [id number] Procedure: CT abdomen pelvis w con Ordering Provider: Mark Granados [facility] PROCEDURE: CT ABDOMEN PELVIS W CON INDICATIONS: abd pain, chronic n/v, weight loss TECHNIQUE: After the administration of intravenous contrast, 5 mm thick sections acquired from the diaphragm to the symphysis. 5 mm coronal and sagittal reformats were acquired. For radiation dose reduction, the following was used: automated exposure control, adjustment of mA and/or kV according to patient size. COMPARISON: [facility], , US ABDOMEN LIMITED, 03/27/2020, 14:42. FINDINGS: Image quality: Excellent. ABDOMEN: Lung bases: Lung bases are clear. Heart size is normal. Solid organs: Liver is normal in size and enhancement. Gallbladder demonstrates no significant abnormality. Biliary system is non dilated. Pancreas enhances normally. Spleen is normal in size and enhancement. No adrenal nodules. Kidneys demonstrate normal size and enhancement, without hydronephrosis. Peritoneum and bowel: Bowel loops demonstrate normal wall thickness and caliber. No free fluid or air. Nodes and vessels: No retroperitoneal or mesenteric adenopathy by size criteria. Aorta and inferior vena cava are normal in size. Atherosclerotic calcification is noted. Miscellaneous: No ventral hernias. PELVIS: Genitourinary: The urinary bladder is distended. Miscellaneous: No inguinal hernias or adenopathy. Bones: No suspicious bony lesions. No vertebral body compression fractures. This patient has transitional lumbar anatomy. For the purposes of this examination, the level with the tiny vestigial ribs is considered to be T12. By this numbering scheme, the L5 level there is transitional and highly sacralized. Age-appropriate bony degenerative changes are seen. IMPRESSION: No imaging explanation is found for this patient's presenting symptoms. Incidental note is made of: Transitional lumbar anatomy Distended urinary bladder. Dictated by: Tristan Ba M.D. on 03/27/2020 at 15:17 Approved by: Tristan Ba M.D. on 03/27/2020 at 15:20 Chest x-ray: Radiologist's Impression: [place] [address] XRay Report Signed Patient: Franklin BrooksMR#: [id number] : 1970Acct:[id number] Age/Sex: 50 / MDate of Service: 03/27/20 Loc: ED Accession Number: [id number] Procedure: XR chest 2V Ordering Provider: Mark Granados PROCEDURE: XR CHEST 2V INDICATIONS: hx of smoker, significant weight loss, upper abd pain TECHNIQUE: 2 views of the chest were acquired. COMPARISON: [facility], , XR CHEST 2V, 11/13/2019, 12:33. FINDINGS: Surgical changes and devices: None. Lungs and pleura: Lungs are clear. No pleural effusions or pneumothorax. Mediastinum: Mediastinal contours are normal. Heart size is normal. Bones and chest wall: No suspicious bony abnormalities. Soft tissues appear unremarkable. IMPRESSION: No acute cardiopulmonary process is seen. If there is strong clinical concern for an intrathoracic neoplasm in this patient with a given history of smoking, please consider a dedicated chest CT with contrast for further evaluation. Dictated by: Tristan Ba M.D. on 03/27/2020 at 14:15 Approved by: Tristan Ba M.D. on 03/27/2020 at 14:16 ECG Data Attestation: I personally reviewed and interpreted this ECG as follows: Prior ECG tracings: not available for review Interpretation: Normal sinus rhythm rate at 81. MS interval 160, QRS duration 88, QT/QTC 368/427. Normal [place]. No acute ST changes. MDM Narrative Medical decision making narrative: This is a 50-year-old male who presents to ED with ongoing nausea and vomiting for last 5 months with significant weight loss and epigastric pain who has been diagnosed with type 2 diabetes in beginning of November. Patient is currently not on diabetic medication due to unable to tolerate metformin. Patient is controlling hyperglycemia with very low carbohydrate diet and supplement Berberine. EKG shows NSR without acute ST changes. Chest x-ray shows no acute findings. Patient does not have chest pain, cough. Was recommended for chest CT with contrast for further concerns for intrathoracic neoplasm. Abdominal ultrasound does not indicate acute findings. CT test Of abdomen and pelvis again also shows no acute findings. CBC without anemia or leukocytosis. Elevated glucose of 253 otherwise unremarkable chemistry test results. Urine test was negative for infection. The patient was medicated with IV fluid normal saline bolus for 1 L and gentle controlled IV hydration afterwards. Nausea has been treated with IV Zofran, with Benadryl and Reglan which improved his nausea. Abdominal discomfort was treated with pantoprazole, sucralfate, and IV Toradol. Patient reports improved symptoms before leaving ED. VS was within normal limit and afebrile during ED stay. Although patient reported about 45 lb of weight lost for last 5 months worse in last 2 week, our EHR indicates about 22 Lbs loss since the beginning of November. Patient was able to tolerate fluids without vomiting. Findings were discussed with patient and spouse. Patient advised to follow-up with able bodied watchman as scheduled in 3 days. Also recommended counseling with diabetes honing machine operator semiautomatic and follow-up with possible GI specialist for further evaluation and treatment possibly for malnutrition. Patient had EGD with biopsy and gastric emptying study done in the past with normal findings according to patient's report which is not available today for review. Patient reports he is in process switching primary care physician from [facility] contact information has been provided. Return precautions were discussed with patient and spouse and patient verbalized understanding and agreement with the treatment plan. <Vasu Crow MD - Last Filed: 03/28/20 07:51> Lab Data Labs: Lab Results 03/27/20 03/27/20 03/27/20 Range/Units 12:25 13:12 13:12 WBC 5.9 (4.5-11.0) X10^3/uL RBC 4.90 (4.5-5.9) X10^6/uL Hgb 15.6 (13.5-17.5) g/dL Hct 44.4 (41-53) % MCV 90.6 (80-100) fL MCH 31.9 (26-34) PG MCHC 35.2 (30-36) % RDW 13.2 (11.6-14.8) % Plt Count 248 (150-400) X10^3/uL Neut % (Auto) 58.0 (50-75) % Lymph % (Auto) 32.8 (25-40) % [place] % (Auto) 8.3 (3-14) % Eos % (Auto) 0.5 L (2-4) % Baso % (Auto) 0.4 (0-2) % Neut # (Auto) 3400 (0409-2973) /uL Lymph # (Auto) 1900 (1766-4953) /uL [place] # (Auto) 500 (0-900) /uL Eos # (Auto) 0 (0-450) /uL Baso # (Auto) 0 (0-100) /uL PT 10.8 (10.1-12.7) SECONDS INR 0.9 (0.9-1.3) APTT 27 (26.4-36.2) SECONDS Sodium (137-145) mmol/L Potassium (3.4-5.1) mmol/L Chloride (98-107) mmol/L Carbon Dioxide (22-32) mmol/L BUN (9-20) mg/dL Creatinine (0.66-1.25) mg/dL Estimated GFR (>60) mL/min BUN/Creatinine Ratio (6-22) Glucose (70-100) mg/dL Calcium (8.4-10.2) mg/dL Total Bilirubin (0.2-1.3) mg/dL AST (17-59) IU/L ALT (<50) IU/L Alkaline Phosphatase (38-126) U/L Total Protein (6.3-8.2) g/dL Albumin (3.5-5.0) g/dL Globulin (1.7-4.1) g/dL Albumin/Globulin Ratio (1.0-2.8) Lipase (23-300) U/L Urine RBC None seen (0-5/HPF) Urine WBC None seen (0-5/HPF) Calcium Oxalate Crystal Few H Amorphous Sediment 3+ Urine Bacteria None seen (None) Ur Culture Indicated? Cult not indicated 03/27/20 Range/Units 13:12 WBC (4.5-11.0) X10^3/uL RBC (4.5-5.9) X10^6/uL Hgb (13.5-17.5) g/dL Hct (41-53) % MCV (80-100) fL MCH (26-34) PG MCHC (30-36) % RDW (11.6-14.8) % Plt Count (150-400) X10^3/uL Neut % (Auto) (50-75) % Lymph % (Auto) (25-40) % [place] % (Auto) (3-14) % Eos % (Auto) (2-4) % Baso % (Auto) (0-2) % Neut # (Auto) (4075-8415) /uL Lymph # (Auto) (5452-5263) /uL [place] # (Auto) (0-900) /uL Eos # (Auto) (0-450) /uL Baso # (Auto) (0-100) /uL PT (10.1-12.7) SECONDS INR (0.9-1.3) APTT (26.4-36.2) SECONDS Sodium 134 L (137-145) mmol/L Potassium 4.3 (3.4-5.1) mmol/L Chloride 101 (98-107) mmol/L Carbon Dioxide 26 (22-32) mmol/L BUN 18 (9-20) mg/dL Creatinine 0.79 (0.66-1.25) mg/dL Estimated GFR > 60.0 (>60) mL/min BUN/Creatinine Ratio 22.8 H (6-22) Glucose 253 H (70-100) mg/dL Calcium 9.6 (8.4-10.2) mg/dL Total Bilirubin 0.8 (0.2-1.3) mg/dL AST 22 (17-59) IU/L ALT 24 (<50) IU/L Alkaline Phosphatase 34 L (38-126) U/L Total Protein 6.4 (6.3-8.2) g/dL Albumin 4.2 (3.5-5.0) g/dL Globulin 2.2 (1.7-4.1) g/dL Albumin/Globulin Ratio 1.9 (1.0-2.8) Lipase 56 (23-300) U/L Urine RBC (0-5/HPF) Urine WBC (0-5/HPF) Calcium Oxalate Crystal Amorphous Sediment Urine Bacteria (None) Ur Culture Indicated? Point of care testing: Urine Dip Bedside Urine Glucose 250 mg/dl Bedside Urine Bilirubin - Negative Bedside Urine Ketone - Negative Urine Specific [place] 1.020 Bedside Urine Occult Blood - Negative Bedside Urine pH 6.0 Bedside Urine Protein - Negative Bedside Urine Urobilinogen - Negative Bedside Urine Nitrite - Negative Bedside Urine Leukocytes - Negative Esterase Discharge Plan Departure Patient Disposition: Home Clinical Impression: Abdominal pain, epigastric Nausea & vomiting Qualifiers: Vomiting type: unspecified Vomiting Intractability: unspecified Qualified Code(s): R11.2 - Nausea with vomiting, unspecified Diabetes mellitus Qualifiers: Diabetes mellitus type: type 2 Diabetes mellitus director long term care insulin use: without director long term care use Diabetes mellitus complication status: with other specified complication Qualified Code(s): E11.69 - Type 2 diabetes mellitus with other specified complication Discharge Date/Time: 03/27/20 17:58 Activity Restrictions/Additional Instructions: You have been diagnosed with [diabetes type 2, abdominal pain, ongoing nausea and vomiting, significant weight loss over 5 months. Blood test for CBC, CMP, lipase, coag tests were unremarkable except slightly elevated blood glucose as 253. Ultrasound for upper abdomen and CT test of abdomen pelvis without acute findings. You were hydrated with IV fluid, anti nausea medications Zofran and Reglan, Sucrafate, Pantoprazole and Toradol with some improvement.] What to do: *Take your medications as directed. Please take Zofran or Reglan as needed for nausea and vomiting. Sucralfate 1 g as needed if you have gastric pain. Please take easy to digestable food small amount frequently. You may need other medications to control blood glucose better. This medication has been transmitted to [facility] in [place]. *Follow up with your primary care provider in 2-3 days, call for an appointment. Please follow up with able bodied watchman as planned this week. You may need another referral to GI specialist for further evaluation for possible malabsorption or gasteroporosis. Let them know you were seen in the ED and that we asked you to be seen in follow up. *Return to ED if you have any new, worsening, or concerning symptoms, such as [chest pain, breathing difficulty, unable to tolerate fluids, fever, worsening pain, or any acute concerns]. Prescriptions: New ondansetron 4 mg tablet,disintegrating 4 mg PO Q8H PRN (Reason: nausea and vomiting) Qty: 10 RF: 0 metoclopramide HCl [Reglan] 10 mg tablet 10 mg PO QACHS PRN (Reason: nausea and vomiting) Qty: 14 RF: 0 sucralfate 1 gram tablet 1 gram PO QAC PRN (Reason: gastric pain) Qty: 30 RF: 0 No Action metformin 500 mg tablet 500 mg PO BID Qty: 30 RF: 0 Referrals: [facility] [Outside]
--- NOTE | 2020-03-27 15:12 | DI.CT.S_ITS ---
PROCEDURE: CT ABDOMEN PELVIS W CON INDICATIONS: abd pain, chronic n/v, weight loss TECHNIQUE: After the administration of intravenous contrast, 5 mm thick sections acquired from the diaphragm to the symphysis. 5 mm coronal and sagittal reformats were acquired. For radiation dose reduction, the following was used: automated exposure control, adjustment of mA and/or kV according to patient size. COMPARISON: [facility], , ABDOMEN LIMITED, 03/27/2020, 14:42. FINDINGS: Image quality: Excellent. ABDOMEN: Lung bases: Lung bases are clear. Heart size is normal. Solid organs: Liver is normal in size and enhancement. Gallbladder demonstrates no significant abnormality. Biliary system is non dilated. Pancreas enhances normally. Spleen is normal in size and enhancement. No adrenal nodules. Kidneys demonstrate normal size and enhancement, without hydronephrosis. Peritoneum and bowel: Bowel loops demonstrate normal wall thickness and caliber. No free fluid or air. Nodes and vessels: No retroperitoneal or mesenteric adenopathy by size criteria. Aorta and inferior vena cava are normal in size. Atherosclerotic calcification is noted. Miscellaneous: No ventral hernias. PELVIS: Genitourinary: The urinary bladder is distended. Miscellaneous: No inguinal hernias or adenopathy. Bones: No suspicious bony lesions. No vertebral body compression fractures. This patient has transitional lumbar anatomy. For the purposes of this examination, the level with the tiny vestigial ribs is considered to be T12. By this numbering scheme, the L5 level there is transitional and highly sacralized. Age-appropriate bony degenerative changes are seen. IMPRESSION: No imaging explanation is found for this patient's presenting symptoms. Incidental note is made of: Transitional lumbar anatomy Distended urinary bladder. Dictated by: Tristan Ba M.D. on 03/27/2020 at 15:17 Approved by: Tristan Ba M.D. on 03/27/2020 at 15:20
[2020-03-27] MEDS: SODIUM CHLORIDE 0.9% 1,000 ML 125 ML IV (16:39)
[2020-03-27] MEDS: diphenhydrAMINE 50 MG/ML VIAL 25 MG IV (16:40)
[2020-03-27] MEDS: KETOROLAC 60 MG/2 ML VIAL 15 MG IV (16:40)
[2020-03-27] MEDS: METOCLOPRAMIDE 10 MG/2 ML INJ IV (16:40)
== END 2020-03-27 17:58 | disposition home or self-care (01) ==
PROVIDERS: Emergency Medicine; Emergency Provider Nurse Practitioner Family
DX: R10.13 Epigastric pain (principal); R11.2 Nausea with vomiting, unspecified; R63.4 Abnormal weight loss; E11.69 Type 2 diabetes mellitus with other specified complication
CPT/HCPCS: 36415; 71046; 74177; 76705; 80053; 81003; 81015; 83690; 85025; 85610; 85730; 93005; 96361; 96374; 96375; 99284; 99285; C9113; J1200; J1885; J2405; J2765; Q9967

== ENCOUNTER 2020-07-19 13:25 | Emergency (ER) | payer OTHER, SELFPAY ==
[2020-07-19 13:43] VITALS: BP 134/78; PULSE 111; RESP 16; TEMP 36.6; O2SAT 97; BMI 22.5
--- NOTE | 2020-07-19 14:07 | ED_ITS ---
HPI - GI Bleed General Chief complaint: GI Bleed Stated complaint: vomiting blood Time Seen by Provider: 07/19/20 14:00 Source: patient Mode of arrival: Ambulatory Limitations: no limitations History of Present Illness HPI Narrative: Patient is a 50-year-old is an insulin-dependent diabetic who is also had a history of cannabis hyperemesis syndrome who is here for evaluation of 24-48 hours of multiple episodes of vomiting which he states are dark in color and also bright red. He is not having any chest pain or shortness of breath. He denies any alcohol use. He denies the use of any anti- inflammatories. He states he does not use cannabis any longer. Not on blood thinners. Has not had any change in his stool. Has not tried anything for his nausea and vomiting prior to arrival. No recent antibiotics. Related Data Home Medications Medication Instructions Recorded Confirmed gabapentin 300 mg capsule 300 mg PO BEDTIME 04/18/20 04/18/20 insulin glargine 100 unit/mL 10 unit SUBCUT BEDTIME 04/18/20 04/18/20 subcutaneous solution insulin regular hum U-500 conc 500 25 unit SUBCUT QACDINNER 04/18/20 04/18/20 unit/mL subcutaneous soln Previous Rx's Medication Instructions Recorded metformin 500 mg PO BID #30 tab 11/14/19 metoclopramide HCl [Reglan] 10 mg PO QACHS PRN #14 tab 03/27/20 ondansetron 4 mg PO Q8H PRN #10 tab 03/27/20 sucralfate 1 gram PO QAC PRN #30 tab 03/27/20 celecoxib 200 mg capsule 200 mg PO DAILY #30 cap 04/18/20 esomeprazole magnesium [Nexium 20 mg PO DAILY #30 cap 07/19/20 24HR] metoclopramide HCl [Reglan] 10 mg PO Q6H PRN #14 tab 07/19/20 Allergies Allergy/AdvReac Type Severity Reaction Status Date / Time bupropion [From Wellbutrin] Allergy Verified 04/18/20 11:14 egg Allergy Verified 04/18/20 11:14 lactase [From Dairy Aid] Allergy Verified 04/18/20 11:14 Review of Systems Constitutional Constitutional: Denies fever(s) and Denies headache(s) ENT Ears, Nose, Mouth, and Throat: Denies headache(s) Cardiovascular Cardiovascular: Denies chest pain, Denies rapid heart rate and Denies dyspnea Respiratory Respiratory: Denies cough and Denies dyspnea Gastrointestinal Gastrointestinal: Denies abdominal pain, Denies hematochezia, Denies change in bowel habits, Reports coffee ground emesis, Reports nausea and Reports vomiting Genitourinary Genitourinary: Denies dysuria Genitourinary: Denies dysuria Musculoskeletal Musculoskeletal: Denies arthralgias and Denies myalgias Integumentary/Breasts Skin/Breast: Denies rash Neurologic Neurologic: Denies behavioral changes and Denies headache(s) Psychiatric Psychiatric: Denies behavioral changes Hematologic/Lymphatic Hematologic/Lymphatic: Denies easy bleeding and Denies easy bruising Patient History Medical History Diabetes (Acute) Diabetic peripheral neuropathy (Acute) Facet arthropathy, lumbar (Acute) Failure to thrive (Acute) Tonsillectomy planned (Acute) Family History Grandmother Diabetes mellitus Mother Diabetes mellitus Stroke Social History Smoking Status: Former smoker Smoking Status: Former smoker alcohol intake frequency: holidays/special occasions only Substance Use Type: does not use Exam Initial Vital Signs Initial Vital Signs: Vital Signs Temperature 98 F 07/19/20 13:43 Pulse Rate 111 H 07/19/20 13:43 Respiratory Rate 16 07/19/20 13:43 Blood Pressure 134/78 07/19/20 13:43 Pulse Oximetry 97 07/19/20 13:43 Const General: cooperative, comfortable and well developed Limitations: mental status not altered [facility] Head: normal to inspection and normocephalic Resp Effort & Inspection: normal respiratory effort Auscultation: clear to auscultation bilaterally Cardio Rate: tachycardic Rhythm: regular rhythm GI Inspection: non-distended Palpation: soft, No firm and No tender Skin Lesions: no lesions Rashes: no rashes Neuro General: patient alert and patient awake Cognition: normal cognition Speech: speech normal Extrem General: normal to inspection and capillary refill normal Psych Appearance: grossly normal and well kempt Course Orders Ordered: ED Orders 07/19/20 13:49 EKG-12 Lead Stat 07/19/20 14:10 Complete Blood Count AUTO DIFF Stat Comprehensive Metabolic Panel Stat Lipase Stat Partial Thromboplastin Time Stat Prothrombin Time INR Stat Type and Screen Stat Discontinued Medications Pantoprazole Sodium (Protonix) 40 mg IV NOW ONE Stop: 07/19/20 14:08 Last Admin: 07/19/20 14:59 Dose: 40 mg Documented by: AGUSTIN Vital Signs Vital signs: Vital Signs - 8 hr 07/19/20 13:43 07/19/20 14:42 07/19/20 15:43 Temperature 98 F Pulse Rate 111 H 86 72 Respiratory Rate 16 14 Blood Pressure 134/78 121/88 126/76 Pulse Oximetry 97 100 100 MDM - GI Bleed Lab Data Attestation: I reviewed the patient's lab results. Result diagrams: 07/19/20 14:10 07/19/20 14:10 Labs: Lab Results 07/19/20 07/19/20 07/19/20 Range/Units 14:10 14:10 14:10 WBC 10.0 (4.5-11.0) X10^3/uL RBC 4.91 (4.5-5.9) X10^6/uL Hgb 15.5 (13.5-17.5) g/dL Hct 45.7 (41-53) % MCV 93.1 (80-100) fL MCH 31.5 (26-34) PG MCHC 33.8 (30-36) % RDW 13.4 (11.6-14.8) % Plt Count 270 (150-400) X10^3/uL Neut % (Auto) 79.8 H (50-75) % Lymph % (Auto) 12.0 L (25-40) % [place] % (Auto) 8.0 (3-14) % Eos % (Auto) 0.0 L (2-4) % Baso % (Auto) 0.2 (0-2) % Neut # (Auto) 8000 H (5888-0042) /uL Lymph # (Auto) 1200 (4885-1936) /uL [place] # (Auto) 800 (0-900) /uL Eos # (Auto) 0 (0-450) /uL Baso # (Auto) 0 (0-100) /uL PT 12.4 (10.1-12.7) SECONDS INR 1.1 (0.9-1.3) APTT 26 L (26.4-36.2) SECONDS Sodium 138 (137-145) mmol/L Potassium 4.0 (3.4-5.1) mmol/L Chloride 102 (98-107) mmol/L Carbon Dioxide 30 (22-32) mmol/L BUN 17 (9-20) mg/dL Creatinine 0.81 (0.66-1.25) mg/dL Estimated GFR > 60.0 (>60) mL/min BUN/Creatinine Ratio 21.0 (6-22) Glucose 186 H (70-100) mg/dL Calcium 9.7 (8.4-10.2) mg/dL Total Bilirubin 1.0 (0.2-1.3) mg/dL AST 26 (17-59) IU/L ALT 23 (<50) IU/L Alkaline Phosphatase 42 (38-126) U/L Total Protein 7.9 (6.3-8.2) g/dL Albumin 4.8 (3.5-5.0) g/dL Globulin 3.1 (1.7-4.1) g/dL Albumin/Globulin Ratio 1.5 (1.0-2.8) Lipase (23-300) U/L Blood Type Antibody Screen 07/19/20 07/19/20 Range/Units 14:10 14:10 WBC (4.5-11.0) X10^3/uL RBC (4.5-5.9) X10^6/uL Hgb (13.5-17.5) g/dL Hct (41-53) % MCV (80-100) fL MCH (26-34) PG MCHC (30-36) % RDW (11.6-14.8) % Plt Count (150-400) X10^3/uL Neut % (Auto) (50-75) % Lymph % (Auto) (25-40) % [place] % (Auto) (3-14) % Eos % (Auto) (2-4) % Baso % (Auto) (0-2) % Neut # (Auto) (5450-9293) /uL Lymph # (Auto) (1687-2609) /uL [place] # (Auto) (0-900) /uL Eos # (Auto) (0-450) /uL Baso # (Auto) (0-100) /uL PT (10.1-12.7) SECONDS INR (0.9-1.3) APTT (26.4-36.2) SECONDS Sodium (137-145) mmol/L Potassium (3.4-5.1) mmol/L Chloride (98-107) mmol/L Carbon Dioxide (22-32) mmol/L BUN (9-20) mg/dL Creatinine (0.66-1.25) mg/dL Estimated GFR (>60) mL/min BUN/Creatinine Ratio (6-22) Glucose (70-100) mg/dL Calcium (8.4-10.2) mg/dL Total Bilirubin (0.2-1.3) mg/dL AST (17-59) IU/L ALT (<50) IU/L Alkaline Phosphatase (38-126) U/L Total Protein (6.3-8.2) g/dL Albumin (3.5-5.0) g/dL Globulin (1.7-4.1) g/dL Albumin/Globulin Ratio (1.0-2.8) Lipase 17 L (23-300) U/L Blood Type A Positive Antibody Screen Negative ECG Data Attestation: I personally reviewed and interpreted this ECG as follows: Prior ECG tracings: not available for review Interpretation: Sinus rhythm Ventricular rate 90 Normal axis Normal QRS Normal QTC No ST T wave changes MDM Narrative Medical decision making narrative: Patient had no vomiting here in the ER. His heart rate did improve during his time here. He has no abdominal tenderness. He is not on blood thinners. Denies any use of alcohol or cannabis. He is not anemic. Not hypotensive. Informed patient that he needs to contact his primary doctor to discuss referral to see Gastroenterology for a upper endoscopy. Will send him on on a proton pump inhibitor and also nausea medication. He was given return precautions and follow-up instructions. I do not feel the patient needs admission to the hospital during this ER visit however he was informed he should return if his symptoms continue. He expressed understanding and agreement. Discharge Plan Departure Patient Disposition: Home Clinical Impression: Upper gastrointestinal hemorrhage Discharge Date/Time: 07/19/20 15:44 Instructions: Gastrointestinal Bleeding Activity Restrictions/Additional Instructions: Recommend you continue to take all of your medications as directed. Please continue to abstain from alcohol and avoid nonsteroidal anti-inflammatories such as Motrin or Naprosyn or Aleve. Contact your primary provider for follow-up. Return to the emergency department for any new or worsening symptoms Prescriptions: New metoclopramide HCl [Reglan] 10 mg tablet 10 mg PO Q6H PRN (Reason: nausea and vomiting) Qty: 14 RF: 0 esomeprazole magnesium [Nexium 24HR] 20 mg capsule,delayed release(DR/EC) 20 mg PO DAILY Qty: 30 RF: 0 No Action metformin 500 mg tablet 500 mg PO BID Qty: 30 RF: 0 ondansetron 4 mg tablet,disintegrating 4 mg PO Q8H PRN (Reason: nausea and vomiting) Qty: 10 RF: 0 metoclopramide HCl [Reglan] 10 mg tablet 10 mg PO QACHS PRN (Reason: nausea and vomiting) Qty: 14 RF: 0 sucralfate 1 gram tablet 1 gram PO QAC PRN (Reason: gastric pain) Qty: 30 RF: 0 gabapentin 300 mg capsule 300 mg PO BEDTIME RF: 0 Lantus U-100 Insulin 100 unit/mL solution 10 unit SUBCUT BEDTIME RF: 0 insulin regular hum U-500 conc 500 unit/mL solution 25 unit SUBCUT QACDINNER RF: 0 celecoxib [Celebrex] 200 mg capsule 200 mg PO DAILY Qty: 30 RF: 2
[2020-07-19 14:29] LABS: INR 1.1 (0.9-1.3); Prothrombin Time 12.4 SECONDS (10.1-12.7)
[2020-07-19 14:32] LABS: PTT Partial Thromboplastin Tim 26 SECONDS (26.4-36.2)
[2020-07-19 14:35] LABS: Add Manual Diff / Slide Review NO; Basophils Absolute Auto 0 /uL (0-100); Basophils Percent Auto 0.2 % (0-2); Eosinophils Absolute Auto 0 /uL (0-450); Hematocrit 45.7 % (41-53); Hemoglobin 15.5 g/dL (13.5-17.5); Lymphocytes Absolute Auto 1200 /uL (1100-4500); Mean Corpuscular HGB Conc 33.8 % (30-36); Mean Corpuscular Hemoglobin 31.5 PG (26-34); Mean Corpuscular Volume 93.1 fL (80-100); Monocytes Absolute Auto 800 /uL (0-900); Neutrophils Absolute Auto 8000 /uL (1500-7000); Neutrophils Percent Auto 79.8 % (50-75); Platelet Count 270 X10^3/uL (150-400); Red Blood Cell Count 4.91 X10^6/uL (4.5-5.9); Red Cell Distribution Width 13.4 % (11.6-14.8)
[2020-07-19 14:36] LABS: Alanine Aminotransferase 23 IU/L (<50); Albumin 4.8 g/dL (3.5-5.0); Albumin Globulin Ratio 1.5 (1.0-2.8); Alkaline Phosphatase 42 U/L (38-126); Aspartate Aminotransferase 26 IU/L (17-59); Blood Urea Nitrogen 17 mg/dL (9-20); Calcium 9.7 mg/dL (8.4-10.2); Carbon Dioxide 30 mmol/L (22-32); Chloride 102 mmol/L (98-107); Estimated Glomerular Filt Rate > 60.0 mL/min (>60); Globulin 3.1 g/dL (1.7-4.1); Glucose 186 mg/dL (70-100); HEMOLYSIS < 15 (0-50); Lipase 17 U/L (23-300); Sodium 138 mmol/L (137-145); Total Protein 7.9 g/dL (6.3-8.2)
[2020-07-19 14:42] VITALS: BP 121/88; PULSE 86; O2SAT 100
[2020-07-19] MEDS: PANTOPRAZOLE 40 MG VIAL IV (14:59)
[2020-07-19 15:43] VITALS: BP 126/76; PULSE 72; RESP 14; O2SAT 100
== END 2020-07-19 15:44 | disposition home or self-care (01) ==
PROVIDERS: Emergency Provider Emergency Medicine
DX: K92.2 Gastrointestinal hemorrhage, unspecified (principal)
CPT/HCPCS: 36415; 80053; 83690; 85025; 85610; 85730; 86850; 86900; 86901; 93005; 96374; 99284; C9113